=== PATIENT | male | born 1995 | race American Indian/Alaskan Native ===

== ENCOUNTER 2017-12-22 11:29 | Emergency (ER) | payer MEDICAID, OTHER ==
--- NOTE | 2017-12-22 11:49 | EDM.PDOC ---
Scribed by Jaylene Burk 12/22/17 1144 for Osman Campbell MD ED HPI GENERAL MEDICAL PROBLEM - General Chief Complaint: Drug or Alcohol Abuse Stated Complaint: [id number] ALCOHOL Time Seen by Provider: 12/22/17 11:33 Source of Information: Reports: Patient, RN, RN Notes Reviewed History Limitations: Reports: No Limitations - History of Present Illness INITIAL COMMENTS - FREE TEXT/NARRATIVE: Pt presents to ER from home by POV with c/o "drank too much alcohol last night, and feels sick". Pt is worried because he drank alcohol up until sometime between 0400HRS and 0600HRS, then went to bed, but woke up vomiting and with a headache. Pt states that he came to the ER to see if he could get the alcohol pumped out of his stomach so he will be well enough to go to work at 1600HRS. Pt denies bloody emesis, or coffee ground emesis, bloody/dark/melanotic stools. Onset: Today Duration: Constant Location: Reports: Abdomen Quality: Reports: Burning, Other (nausea) Severity: Mild Improves with: Reports: None Worsens with: Reports: None Associated Symptoms: Reports: No Other Symptoms Past Medical History Psychiatric History: Reports: Mood Swings, Psychosis Social & Family History - Family History Family Medical History: Unobtainable (pt unsure) - Tobacco Use Smoking Status *Q: Current Some Day Smoker Tobacco Use Within Last Twelve Months: Cigarettes - Alcohol Use Alcohol Use History: Yes Alcohol Use Frequency: Binges - Living Situation & Occupation Living situation: Reports: with Family Occupation: Employed ED ROS GENERAL - Review of Systems Review Of Systems: ROS reveals no pertinent complaints other than HPI. ED EXAM, GENERAL - Physical Exam Exam: See Below Exam Limited By: No Limitations General Appearance: Alert, WD/WN, No Apparent Distress Eye Exam: Bilateral Eye: Normal Inspection Ears: Normal External Exam Nose: Normal Inspection, Normal Mucosa, No Blood Throat/Mouth: Normal Lips, Normal Oropharynx, Normal Voice, No Airway Compromise Head: Atraumatic, Normocephalic Neck: Normal Inspection, Supple, Non-Tender, Full Range of Motion Respiratory/Chest: No Respiratory Distress, Lungs Clear, Normal Breath Sounds, No Accessory Muscle Use, Chest Non-Tender Cardiovascular: Regular Rate, Rhythm, No Edema, No Murmur, Tachycardia GI/Abdominal: Normal Bowel Sounds, Soft, Non-Tender, No Organomegaly, No Distention. No: Guarding, Rigid, Rebound (Male) Exam: Deferred Rectal (Males) Exam: Deferred Back Exam: Normal Inspection, Full Range of Motion. No: CVA Tenderness (L), CVA Tenderness (R) Extremities: Normal Inspection, Normal Range of Motion, Non-Tender, Normal Capillary Refill, No Pedal Edema Neurological: Alert, Oriented, CN II-XII Intact, Normal Cognition, Normal Gait, No Motor/Sensory Deficits Psychiatric: Normal Affect, Normal Mood Skin Exam: Warm, Dry, Intact, Normal Color, No Rash Course - Vital Signs Last Recorded V/S: Last Vital Signs Temp 36.6 C 12/22/17 11:36 Pulse 100 12/22/17 11:36 Resp 16 12/22/17 11:36 BP 138/91 H 12/22/17 11:36 Pulse Ox 96 12/22/17 11:36 - Orders/Labs/Meds Orders: Active Orders 24 hr Category Date Time Status Peripheral IV Care [RC] . DIRECTED Care 12/22/17 11:38 Active ETHANOL BLOOD MEDICAL [CHEM] Stat Lab 12/22/17 11:37 Ordered MVI, Adult with Vitamin K [Infuvite Adult] 10 ml Med 12/22/17 11:38 Active Thiamine [Vitamin B-1] 100 mg Folic Acid 1 mg Lactated Ringers [Ringers, Lactated] 1,000 ml IV .BOLUS Sodium Chloride 0.9% [Saline Flush] Med 12/22/17 11:38 Active 10 ml FLUSH ASDIRECTED PRN Peripheral IV Insertion Adult [OM.PC] Stat Oth 12/22/17 11:37 Ordered Medication Orders Multivitamins/Minerals 10 ml/Thiamine HCl 100 mg/ Folic Acid 1 mg/ Lactated Ringer's 1,011.2 mls @ 999 mls/hr IV .BOLUS ONE Stop: 12/22/17 12:38 Sodium Chloride (Saline Flush) 10 ml FLUSH ASDIRECTED PRN PRN Reason: Keep Vein Open Meds: Medications Generic Name Dose Route Start Last Admin Trade Name Freq PRN Reason Stop Dose Admin Multivitamins/Minerals 10 ml/ 1,011.2 mls @ 999 mls/hr 12/22/17 11:38 Thiamine HCl 100 mg/ Folic IV 12/22/17 12:38 Acid 1 mg/ Lactated Ringer's .BOLUS ONE Sodium Chloride 10 ml 12/22/17 11:38 Saline Flush FLUSH ASDIRECTED PRN Keep Vein Open Discontinued Medications Generic Name Dose Route Start Last Admin Trade Name Annette PRN Reason Stop Dose Admin Famotidine 20 mg 12/22/17 11:38 Pepcid IVPUSH 12/22/17 11:39 ONETIME ONE Ondansetron HCl 4 mg 12/22/17 11:38 Zofran IV 12/22/17 11:39 ONETIME ONE Departure - Departure Time of Disposition: 12:30 Disposition: Home, Self-Care 01 Condition: Good Clinical Impression: Alcohol consumption binge drinking Alcohol intoxication Qualifiers: Complication of substance-induced condition: uncomplicated Qualified Code(s): F10.920 - Alcohol use, unspecified with intoxication, uncomplicated Alcoholic gastritis without hemorrhage Qualifiers: Chronicity: acute Qualified Code(s): K29.20 - Alcoholic gastritis without bleeding - Discharge Information Instructions: Alcohol Intoxication, [id number] Forms: ED Department Discharge Additional Instructions: Do not drink any more alcohol. Follow up in clinic with your primary doctor if any further problems. - My Orders Last 24 Hours: My Active Orders 12/22/17 11:37 ETHANOL BLOOD MEDICAL [CHEM] Stat Peripheral IV Insertion Adult [OM.PC] Stat 12/22/17 11:38 Peripheral IV Care [RC] . DIRECTED MVI, Adult with Vitamin K [Infuvite Adult] 10 ml Thiamine [Vitamin B-1] 100 mg Folic Acid 1 mg Lactated Ringers [Ringers, Lactated] 1,000 ml IV .BOLUS Sodium Chloride 0.9% [Saline Flush] 10 ml FLUSH ASDIRECTED PRN - Assessment/Plan Last 24 Hours: My Active Orders 12/22/17 11:37 ETHANOL BLOOD MEDICAL [CHEM] Stat Peripheral IV Insertion Adult [OM.PC] Stat 12/22/17 11:38 Peripheral IV Care [RC] . DIRECTED MVI, Adult with Vitamin K [Infuvite Adult] 10 ml Thiamine [Vitamin B-1] 100 mg Folic Acid 1 mg Lactated Ringers [Ringers, Lactated] 1,000 ml IV .BOLUS Sodium Chloride 0.9% [Saline Flush] 10 ml FLUSH ASDIRECTED PRN I have read and agree with the documentation that has been completed regarding this visit. By signing this record, I attest that the documentation was completed in my physical presence and is an accurate record of the encounter.
[2017-12-22] MEDS: Famotidine 20 MG/2 ML SDV IVPUSH ONE (11:54)
[2017-12-22] MEDS: MVI, Adult with Vitamin K 10 ML, Thiamine 100 MG, Folic Acid 1 MG in Lactated Ringers 1... IV ONE ×4 (11:54)
[2017-12-22] MEDS: Sodium Chloride 0.9% 10 ML Syringe FLUSH PRN (11:54)
[2017-12-22] MEDS: Ondansetron 4 MG/2 ML SDV IV ONE (11:54)
== END 2017-12-22 12:56 | disposition home or self-care (01) ==
LOC: DL.ED 11:29
DX: K29.20 Alcoholic gastritis without bleeding (principal); F10.120 Alcohol abuse with intoxication, uncomplicated; F17.210 Nicotine dependence, cigarettes, uncomplicated
CPT/HCPCS: 36415; 96365; 96375; 99284; G0480; J2405; J3411; J7050; J7120; J3490; S0028

== ENCOUNTER 2021-04-25 13:57 | Emergency (ER) | payer MEDICARE, MEDICAID ==
[2021-04-25] MEDS ORDERED: Bupivacaine 0.5% 30 ML SDV INJECT ONE (15:27)
--- NOTE | 2021-04-25 15:27 | EDM.PDOC ---
ED HPI GENERAL MEDICAL PROBLEM - General Chief Complaint: ENT Problem Stated Complaint: POSSIBLE INFECTED TOOTH Time Seen by Provider: 04/25/21 15:23 Source of Information: Reports: Patient History Limitations: Reports: No Limitations - History of Present Illness INITIAL COMMENTS - FREE TEXT/NARRATIVE: 26 y/o M c/o R back lower tooth pain about number 32 for the last three days. Pt has had a broke tooth there for a long time. He reports some swelling and tenderness to his jaw on the R side. Has been taking 400mg ibuprofen for pain. No med hx, allergies. Denies fever but has been on ibuprofen. Denies chills, drugs, etoh, diff swallowing, cp, db, abd pn. Right Lower Tooth/Teeth Pain Score (Numeric/FACES): 8 - Related Data Allergies Allergy/AdvReac Type Severity Reaction Status Date / Time No Known Allergies Allergy Verified 04/25/21 15:17 Home Meds: Home Meds Melatonin 10 mg PO BEDTIME 04/25/21 [History] atoMOXetine HCl [Atomoxetine HCl] 80 mg PO DAILY 04/25/21 [History] Past Medical History HEENT History: Reports: None Cardiovascular History: Reports: None Respiratory History: Reports: None Gastrointestinal History: Reports: None Genitourinary History: Reports: None Musculoskeletal History: Reports: None Neurological History: Reports: None Psychiatric History: Reports: Mood Swings, Psychosis Endocrine/Metabolic History: Reports: None Hematologic History: Reports: None Immunologic History: Reports: None Oncologic (Cancer) History: Reports: None Dermatologic History: Reports: None Social & Family History - Family History Family Medical History: Unobtainable - Living Situation & Occupation Living situation: Reports: with Family Occupation: Employed ED ROS ENT - Review of Systems Review Of Systems: Comprehensive ROS is negative, except as noted in HPI. ED EXAM, ENT - Physical Exam Exam: See Below Exam Limited By: No Limitations General Appearance: Alert, No Apparent Distress Nose: Normal Inspection, Normal Mucousa, No Blood Mouth/Throat: Other (poor dentition, Broken number 32 tooth, slight swelling and tenderness to R lateral jaw. ) Head: Atraumatic, Normocephalic Neck: Supple, Tender Lateral (R side tenderness) Respiratory/Chest: No Respiratory Distress, Lungs Clear, Normal Breath Sounds ED ENT PROCEDURES - Additional/Other Procedure(s) Other (Free Text) Procedure(s): Dental block of R Alveolar nerve using 3cc bupivacaine. Needle was inserted and aspirated to confirm no interarterial placement. 3cc bupivacaine injected without complications. Pt feels relief in tooth pain. Course - Vital Signs Last Recorded V/S: Last Vital Signs Temp 97.7 F 04/25/21 15:19 Pulse 104 H 04/25/21 15:19 Resp 20 04/25/21 15:19 BP 156/100 H 04/25/21 15:19 Pulse Ox 96 04/25/21 15:19 - Orders/Labs/Meds Meds: Medications Discontinued Medications Generic Name Dose Route Start Last Admin Trade Name Annette PRN Reason Stop Dose Admin Bupivacaine HCl 30 ml 04/25/21 15:27 04/25/21 15:35 Bupivacaine 0.5% 30 Ml Sdv INJECT 04/25/21 15:28 30 ml ONETIME ONE Administration Departure - Departure Time of Disposition: 16:11 Disposition: Home, Self-Care 01 Condition: Good Clinical Impression: Tooth infection - Discharge Information *PRESCRIPTION DRUG MONITORING PROGRAM REVIEWED*: Not Applicable *COPY OF PRESCRIPTION DRUG MONITORING REPORT IN PATIENT JENNIFER: Not Applicable Instructions: Dental Abscess, [id number] Forms: ED Department Discharge Additional Instructions: RX: Viscous Lidocaine RX: Clindamycin Use tylenol and ibuprofen for pain as needed. Follow up with a dentist on Wednesday. If any new symptoms or concerns develop contact your primary care fac debbie orourke to the ER. Sepsis Event Note (ED) - Focused Exam Vital Signs: Vital Signs Temp Pulse Resp BP Pulse Ox 04/25/21 15:19 97.7 F 104 H 20 156/100 H 96
== END 2021-04-25 16:27 | disposition home or self-care (01) ==
LOC: DL.ED 13:57
DX: K04.7 Periapical abscess without sinus (principal)
CPT/HCPCS: 64400; 99282; J3490

== ENCOUNTER 2022-06-03 15:14 | Emergency (ER) | payer MEDICARE, MEDICAID ==
[2022-06-03] MEDS ORDERED: Amoxicillin/Clavulanate K 875-125 MG Tab PO ONE (15:41)
== END 2022-06-03 16:00 | disposition home or self-care (01) ==
LOC: DL.ED 15:14
DX: H65.92 Unspecified nonsuppurative otitis media, left ear (principal); H72.92 Unspecified perforation of tympanic membrane, left ear
CPT/HCPCS: 99282; A9270-GY